=== PATIENT | female | born 1955 | race Asian ===

== ENCOUNTER → 2018-09-30 | Outpatient (CLI) | payer OTHER ==
[2016-07-16 16:00] VITALS: BP 97/61
[~2018-09-30] MED LIST: MECL25TA3 PO; ONDA4TAB7 PO
--- NOTE | 2018-09-30 10:53 | RAD ---
Indication: Postmenopausal screening for osteoporosis. Follow-up study. COMPARISON: February 09, 2013. Bone Density: -BMD: (g/cm2) - AP Spine Total (L1-L4).......... 1.185. - Total right Hip................. 1.028. T-Score: - AP Spine Total (L1-L4)......... 0. - Total right Hip................. 0.6. Z-Score: - AP Spine Total (L1-L4).......... 2.0. - Total right Hip................. 2.0. World Health Organization criteria for BMD interpretation classify patients as Normal (T-score at or above -1.0), Osteopenic (T-score between -1.0 and -2.5), or Osteoporotic (T-score at or below -2.5). Impression: 1. AP Spine Total L1-L4--- normal. Since the previous study, there has been an increase of approximately 8%. 2. Total right Hip--- normal. Since the previous study, there has been an increase of approximately 2%. Electronically signed by: Rodney Dominique MD (09/30/2018 10:51 AM) [id number]
== END | disposition home or self-care (01) ==
LOC: DXRAD 09:48
DX: M81.0 Age-related osteoporosis without current pathological fracture (principal)
CPT/HCPCS: 77080

== ENCOUNTER 2020-05-26 09:39 | Emergency (ER) | payer MEDICARE, OTHER ==
[~2020-05-26] VITALS: Ht 152.4 cm; Wt 54.5 kg
[~2020-05-26 09:39] MED LIST changes: +MECL-75 PO; -MECL25TA3 PO
[2020-05-26 09:48] VITALS: BP 140/86
--- NOTE | 2020-05-26 10:02 | PHYS DOC ---
Past History Past Medical History: A-Fib, Arthritis Past Surgical History: Hysterectomy, Other Smoking: Non-smoker Alcohol Use: None Drug Use: None General Adult EDM: Chief Complaint: MECHANICAL FALL HPI: HPI: Patient is a 65-year-old female coming in after a slip and fall on ice. Patient states that she fell backwards onto her tailbone and right hip. And fell back onto her elbows and her head. Says her head only slightly hit the ground. Is having significant pain with trying to move right leg. No loss of consciousness. No bleeding but has a small abrasion to her right elbow. Otherwise has been well any recent fevers, cough, vomiting or diarrhea. Last tetanus 2 years ago Review of Systems: Review of Systems: All other systems within normal limits except for as noted in the HPI Allergies: Allergies: Allergies Coded Allergies Type Severity Reaction Last Updated Verified codeine Allergy Unknown Nausea and Vomiting 12/30/13 No Physical Exam: PE: Constitutional: Well developed, well nourished, mild acute distress, non-toxic appearance. [] HENT: Normocephalic, atraumatic, bilateral external ears normal, nose normal, no hematomas or tenderness to palpation. [] Eyes: PERRLA, conjunctiva normal, no discharge. [] Neck: No rigidity, supple, no stridor. [] Cardiovascular: Regular rate and rhythm, brisk cap refill [] Lungs & Thorax: Non labored symmetric respirations, no tachypnea or respiratory distress [] Abdomen: Soft, nondistended. Skin: Warm, dry, no erythema, no rash. [] Extremities: No deformities, range of motion grossly intact, no lower extremity edema. Tenderness to logroll of right hip [] Neurologic: Alert and oriented X 3, no focal deficits noted. [] Psychologic: Affect normal, judgement normal, mood normal. [] Current Patient Data: Vital Signs: Vital Signs Date Time Temp Pulse Resp B/P (MAP) Pulse Ox O2 Delivery O2 Flow Rate FiO2 05/26/20 09:48 60 24 140/86 (104) 100 EKG: EKG: [] Radiology/Procedures: Radiology/Procedures: PROCEDURE: CT PELVIS WO CONTRAST EXAMINATION: CT PELVIS WITHOUT IV CONTRAST CLINICAL HISTORY: Sacral fracture TECHNIQUE: Noncontrast serial axial images obtained through the bony pelvis with sagittal and coronal reconstructions. CT Dose Reduction Employed: One or more of the following individualized dose reduction techniques were utilized for this examination: 1. Automated exposure control 2. Adjustment of the mA and/or kV according to patient size 3. Use of iterative reconstruction technique. COMPARISON: Sacral radiographs same day FINDINGS: Limited evaluation with acute findings in the sacrum essentially only visible on sagittal images secondary to slice thickness and orientation. Nondisplaced fracture through the median sacral ridge at the level of the S3 segment. Suspected nondisplaced fracture through the S3 segment is poorly visualized, but subtle irregularity is suggested along the anterior and posterior cortical margins. No involvement of the S3-4 neural foramina visualized on limited evaluation. No evidence of additional acute fracture. Degenerative changes bilateral SI joints, greatest in the right superior SI suad nt. Pubic symphysis maintained. Bilateral hip joints maintained. Partially visualized abdominopelvic viscera unremarkable. IMPRESSION: Nondisplaced fracture through the median sacral ridge at the level of the S3 segment. Poor visualization of the suspected fracture through the S3 segment. [] Heart Score: Risk Factors: Risk Factors: DM, Current or recent (<one month) smoker, HTN, HLP, family history of CAD, obesity. Risk Scores: Score 0 - 3: 2.5% MACE over next 6 weeks - Discharge Home Score 4 - 6: 20.3% MACE over next 6 weeks - Admit for Clinical Observation Score 7 - 10: 72.7% MACE over next 6 weeks - Early Invasive Strategies Course & Med Decision Making: Course & Med Decision Making Pertinent Labs and Imaging studies reviewed. (See chart for details) No sensation deficits and S3 region, patient complaining of paresthesias on right posterior thigh. Neurosurgery consulted for recommendation. They do not recommend intervention only pain control. Can follow-up with her primary care or with them for further direction on care. [] Dragon Disclaimer: Dragon Disclaimer: This electronic medical record was generated, in whole or in part, using a voice recognition dictation system. Departure Departure: Impression: Primary Impression: Sacral fracture, closed Disposition: 01 DC HOME SELF CARE/HOMELESS Condition: STABLE Referrals: DEDE KAUR MD (PCP) Patient Instructions: Tailbone Injury Additional Instructions: [place] [facility] [address], [address] [place] [address] Scripts Polyethylene Glycol 3350 (MIRALAX) 17 Gm Powd.pack 17 GM PO DAILY for stool softner for 10 Days, #10 PKT Prov: LUCÍA PALMER MD 05/26/20 Oxycodone HCl/Acetaminophen (Percocet 5-325 mg Tablet) 1 Each Tablet 1 TAB PO PRN TID PRN for PAIN MDD 3 Tablet(s) for 10 Days, #30 TAB 0 Refills Prov: LUCÍA PALMER MD 05/26/20 LUCÍA PALMER MD May 26, 2020 10:02
--- NOTE | 2020-05-26 10:51 | RAD ---
EXAMINATION: XR BILATERAL HIP (WITH OR WITHOUT PELVIS) 2 VIEWS_RIGHT, XR SACRUM AND COCCYX 2+VIEWS CLINICAL HISTORY: Fall TECHNIQUE: XR BILATERAL HIP (WITH OR WITHOUT PELVIS) 2 VIEWS_RIGHT, XR SACRUM AND COCCYX 2+VIEWS Number of Images/Views: 3 each COMPARISON: None FINDINGS: Essentially nondisplaced transverse fracture through the S3 segment of the sacrum, best appreciated o n lateral view. No acute right hip fracture. Joint spaces and alignment maintained in the right hip. Limited evaluation of the left hip unremarkab le. Pubic symphysis and SI joints maintained. Partially visualized lumbar degenerative changes. IMPRESSION: Essentially nondisplaced transverse fracture through the S3 segment of the sacrum. Electronically signed by: Jose Riojas DO (05/26/2020 10:49 AM) [id number]
--- NOTE | 2020-05-26 12:19 | RAD ---
EXAMINATION: CT PELVIS WITHOUT IV CONTRAST CLINICAL HISTORY: Sacral fracture TECHNIQUE: Noncontrast serial axial images obtained through the bony pelvis with sagittal and coronal reconstructions. CT Dose Reduction Employed: One or more of the following individualized dose reduction techniques wer e utilized for this examination: 1. Automated exposure control 2. Adjustment of the mA and/or kV ac cording to patient size 3. Use of iterative reconstruction technique. COMPARISON: Sacral radiographs same day FINDINGS: Limited evaluation with acute findings in the sacrum essentially only visible on sagittal images seco ndary to slice thickness and orientation. Nondisplaced fracture through the median sacral ridge at the level of the S3 segment. Suspected nondi splaced fracture through the S3 segment is poorly visualized, but subtle irregularity is suggested al nelly the anterior and posterior cortical margins. No involvement of the S3-4 neural foramina visualize d on limited evaluation. No evidence of additional acute fracture. Degenerative changes bilateral SI joints, greatest in the right superior SI joint. Pubic symphysis ma intained. Bilateral hip joints maintained. Partially visualized abdominopelvic viscera unremarkable. IMPRESSION: Nondisplaced fracture through the median sacral ridge at the level of the S3 segment. Poor visualiza tion of the suspected fracture through the S3 segment. Electronically signed by: Jose Riojas DO (05/26/2020 12:17 PM) [id number]
[2020-05-26] MEDS ORDERED: POLY17PO5 PO (12:41)
[2020-05-26] MEDS ORDERED: OXYC-325 PO (12:41)
== END 2020-05-26 13:08 | disposition home or self-care (01) ==
LOC: ER 09:39
DX: S32.10XA Unspecified fracture of sacrum, initial encounter for closed fracture (principal); S50.311A Abrasion of right elbow, initial encounter; I48.91 Unspecified atrial fibrillation; M19.90 Unspecified osteoarthritis, unspecified site; Z88.5 Allergy status to narcotic agent; W00.0XXA Fall on same level due to ice and snow, initial encounter; Y93.89 Activity, other specified; Y92.89 Other specified places as the place of occurrence of the external cause; Y99.8 Other external cause status
CPT/HCPCS: 72192; 72220; 73502; 96372; 99284; J3010